=== PATIENT | female | born 1935 | race African-American/Black ===

== ENCOUNTER → 2019-05-14 | Outpatient (CLI) | payer OTHER ==
[~2019-05-14] VITALS: Ht 162.6 cm; Wt 68.9 kg
[~2019-05-14] MED LIST: ADVAIR HFA115 MCG/21 INH; ANTIVERT25 MG PO; ASPIR 8181 M1 PO; ASPIR 8181 MG PO; CENTRUM SILVER1 EAC4 PO; CIPRO500 MG PO; COZAAR 50 MG TA50 M2 PO; FISH OIL 1,001000 M2 PO; FLAGYL500 MG PO; GLIPIZIDE 10 MG10 MG PO; HYDROCHLOROTH12.5 M1 PO; LIDODERM 5%1 PATC1 TOP; METFORMIN HCL500 MG PO; MOBIC7.5 MG PO; MOVANTIK25 MG PO; MYRBETRIQ25 MG PO; NEURONTIN 300300 M1 PO; NITROGLYCERIN0.4 MG SL; NORTRIPTYLINE H10 M1 PO; NORVASC5 MG PO; OMEPRAZOLE 20 M20 M1 PO; OXYCODONE HCL20 M1 PO; OXYCONTIN20 M1 PO; PRESERVISION T1 EACH PO; PRILOSEC 20 MG20 MG PO; TENORMIN50 MG PO; TOVIAZ4 M1 PO; TRIPLE FLEX CA1 EACH PO; TROSPIUM CHLORI20 MG PO; TYLENOL325 M1 PO; VITAMIN D1000 UNIT PO; VITAMINC500 PO; VYTORIN 10-201 EACH PO; WAL-DRYL25 M1 PO
--- NOTE | ~2019-05-14 | HPC ---
[facility] [place] [address] PAIN MANAGEMENT CONSULTATION Name: GLADYS BRONSON Room #: REG [facility]..#: [id number] Admission: 05/14/19 Attend Phys: Kenney Delarosa MD Discharge: Date of : 37 Report #: [id number] THIS REPORT FOR: //name// CC: Bran Delarosa DATE OF SERVICE: 05/14/2019 CHIEF COMPLAINT: Low back pain with radiation down the back of her legs and numbness in her calves. The patient is a pleasant 84-year-old, here today with her daughter. She has longstanding back pain that has been fairly severe since 2016. Her pain is described as constant and aching and she scores it as a 10/10, worse with standing and weightbearing, improved by lying down and sitting. Pain drawing shows pain across the low back, but she did not complete it. She also reported pain into her legs, posterior thigh and calf. I have very little in the way of history or past medical records. She saw Dr. Gurwinder Altamirano on 02/13/2019. He referred her to our clinic for assessment. He raised the question of whether or not she was a candidate for a neurostimulator. MEDICATIONS: Losartan, glipizide, omeprazole, amlodipine, Vytorin, gabapentin 100 mg 2 tablets daily or 300 mg b.i.d., I am uncertain by her history. Baby aspirin, atorvastatin, fish oil, Tylenol 2 tablets t.i.d. ALLERGIES: PENICILLIN AND ASPIRIN. PAST MEDICAL HISTORY: As noted from her report and Dr. Altamirano's record, positive for type 2 diabetes, hypertension, gastroesophageal reflux disease, hyperlipidemia, and there is mention of this CVA, no residual. SOCIAL HISTORY: She is able to live independently, but is limited. She reports every day tobacco use for decades. She denies use of alcohol. She has trouble with all of her daily weightbearing activities. REVIEW OF SYSTEMS: Decreased appetite and fatigue and weakness, hearing loss, loss of appetite, frequent urination and nocturia including incontinence and dribbling. Memory loss is noted on the form by her daughter with a ?. FAMILY HISTORY: No family history documented. PHYSICAL EXAMINATION: [facility] [address] [place] [address] PAIN MANAGEMENT CONSULTATION Name: GLADYS BRONSON Room #: REG [facility] Sugar.#: [id number] Admission: 05/14/19 Attend Phys: Kenney Delarosa MD Discharge: Date of : 37 Report #: [id number] GENERAL: She is pleasant, hard of hearing. VITAL SIGNS: Blood pressure 121/57, heart rate 60, respirations 20, O2 sat 100, 5 feet, 4 inches, 152 pounds, BMI 26.1. HEENT: Reveals some arcus senilis. Pupils are equal, reactive to light. EOMs intact. Mucous membranes moist. NECK: Supple. CHEST: Clear, without any audible wheezing, inspiratory or expiratory. CARDIAC: Rhythm was regular. I did not hear a murmur. ABDOMEN: Soft. MUSCULOSKELETAL: She moves independently from sitting to standing position with some effort. She walks with a cane. She complains of pain as she stands and as she walks. Pain is in her back, hips and radiating down both legs. Examination of the spine reveals tenderness across the lumbosacral segment. There is pain in the paravertebral muscles as well. There is no pain in the thoracic region. She has no tenderness over the sacroiliac joints. In the seated position, straight leg raising is negative for radicular symptoms. Sensation is diminished slightly. Deep tendon reflexes are 1+ at the knees and absent at the ankles. There is no significant focal weakness. DIAGNOSTIC DATA: MRI scan report reviewed. The scan shows that there are multilevel degenerative changes consistent with age. Findings are most pronounced at L4-L5 and are consistent with spinal stenosis 5-6 mm in the AP diameter. There is bilateral foraminal stenosis as well, more prominent on the right. While this is the worst level, there are degenerative changes also noted at L3-L4 of similar degree without the anterolisthesis and there is also narrowing at L5-S1. I do not have the films to review. There is significant ligamentous hypertrophy reported and bulging annulus. 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 RECOMMENDATIONS: She was sent to us to discuss neurostimulator and we did that. I discussed multiple steps required until someone has a successful stimulator implant. This includes initial preauthorization, a visit to a clinical psychologist. A trial is performed with leads placed and carried on for 1 week. If the trial is deemed successful, the leads are removed and after a period of 4 weeks to prevent the risk of infection, a neurostimulator implant would take place. The surgical procedure has some risks including infection, movement of the leads and failure to provide similar relief to the trial. Multiple visits may be required with the stimulator representatives to explore programming. At the end of the process, success in my opinion is substantial and meaningful pain relief without using multiple other modalities and the duration of the response should be long. I shared with the patient and her daughter that we see many spinal cord stimulator failures coming to our practice from elsewhere and that it is not successful across the board. The patient's selection is important. [facility] [address] [address] PAIN MANAGEMENT CONSULTATION Name: GLADYS BRONSON Room #: REG [facility]se Collins#: [id number] Admission: 05/14/19 Attend Phys: Kenney Delarosa MD Discharge: Date of : 37 Report #: [id number] Another option would be an intermittent epidural steroid injection using low dose triamcinolone because of her diabetes. This can be performed in 5-10 minutes and we have success rate of roughly 50% with epidural for patients with neurogenic claudication. Success, as I describe it is meaningful improvement for a period of 3-6 months and the epidural can be repeated if there is a spot identified that provides good relief. Many patients are satisfied with this simpler approach. Her medication was reviewed on the prescription drug monitoring program information. It appears that since 03/08/2019, she has had prescriptions for 330 oxycodone tablets; 240 of these were 20 mg and 90 of them were 10 mg. It is curious because she tells us that she has not taken oxycodone since February. Neither her daughter nor the patient could help us identify the location of these medications, although they may be in pills in her apartment. Her daughter was asked to look for them and have them disposed. With the opioid crisis, this is many milligrams of oxycodone, high dose that can be adulterated. We want to make sure that they are kept off the street. I have requested an epidural steroid injection at L4-L5 and we will bring her back for the procedure. I do not intend to prescribe medications for her. By: [id number] Kenney Delarosa MD /nt
[2019-05-14 10:21] VITALS: BP 121/57
--- NOTE | 2019-05-14 10:53 | NUR ---
Pain Clinic Assessment: 1. History of Osteoarthritis: "ALL OVER" History of Rheumatoid Arthritis: DENIES 2. Height: 5 ft. 4 in. 162.6 cm. Weight: 152.0 lb. oz. 68.947 kg. Patient's BMI: 26.1 3. Vital Signs: BP: 121/57 Pulse: 60 Resp: 20 Temp: 02 Sat: 100 ECG Mon: 4. Pain Intensity: 10 5. Fall Risk: Dizziness: Y Needs help standing or walking: Y Fallen in the last 3 months: N Fall risk comments: 6. Patient on Blood Thinner: None 7. History of Hypertension: Y 8. Opioid Therapy greater than 6 weeks: N Opiate Contract Signed: 9. Risk Assessment Tool Provided: 10. Functional Assessment Tool: 11. Recreational Drug Use: Never Drug Type: Tobacco Use: Current Every Day Smoker Tobacco Type: Cigarettes Amount or Packs/day: 1 How Many Years: 50 Alcohol Use: No Frequency: Quant:
== END ==
LOC: PAIN 03-26 06:54
DX: M43.16 Spondylolisthesis, lumbar region (principal); M48.062 Spinal stenosis, lumbar region with neurogenic claudication; Z79.899 Other long term (current) drug therapy; Z88.8 Allergy status to other drugs, medicaments and biological substances

== ENCOUNTER → 2019-05-21 | Outpatient (CLI) | payer OTHER ==
[~2019-05-21] VITALS: Ht 162.6 cm; Wt 68.9 kg
--- NOTE | ~2019-05-21 | HPC ---
[facility] [address] [place] [address] PAIN MANAGEMENT CONSULTATION Name: GLADYS BRONSON Room #: REG Jesse Wooten.#: [id number] Admission: 05/21/19 Attend Phys: Kenney Delarosa MD Discharge: Date of : 37 Report #: [id number] THIS REPORT FOR: cc: Marco A Mcguire MD, Keninde A. MD Morgan, Richard L. MD ~ THIS REPORT FOR: //name// CC: Bran Delarosa DATE OF SERVICE: 05/21/2019 Followup visit for neurogenic claudication secondary to spinal stenosis. The patient was seen in consultation 1 week ago and we received preauthorization to go forward with a lumbar epidural injection today. Potential benefits and risks were reviewed once again with her. She is anxious to proceed to obtain some relief. After informed consent, she was taken to fluoroscopic suite for treatment. PROCEDURE: Lumbar epidural steroid injection L3-L4 under fluoroscopic guidance. She was taken to fluoroscopic suite, placed prone, skin prepped with ChloraPrep. Skin anesthetized over the L3-L4 interspace. A 20-gauge Tuohy epidural needle was advanced in the epidural space with loss of resistance technique. There was no blood or CSF aspirated. A 1 mL of Omnipaque injected to demonstrate an excellent epidurogram, was followed by 3 mL of 0.5% lidocaine mixed with 80 mg of triamcinolone. She tolerated the procedure well and was observed for 45 minutes and discharged. Follow up as needed. By: [id number] Kenney Delarosa MD /nt
[2019-05-21 15:00] VITALS: BP 125/71
--- NOTE | 2019-05-21 15:19 | NUR ---
Pain Clinic Assessment: 1. History of Osteoarthritis: "ALL OVER" History of Rheumatoid Arthritis: DENIES 2. Height: 5 ft. 4 in. 162.6 cm. Weight: 152.0 lb. oz. 68.947 kg. Patient's BMI: 26.1 3. Vital Signs: BP: 125/71 Pulse: 73 Resp: 14 Temp: 02 Sat: 95 ECG Mon: 4. Pain Intensity: 10 5. Fall Risk: Dizziness: N Needs help standing or walking: Y Fallen in the last 3 months: N Fall risk comments: 6. Patient on Blood Thinner: None 7. History of Hypertension: Y 8. Opioid Therapy greater than 6 weeks: N Opiate Contract Signed: 9. Risk Assessment Tool Provided: 0- LOW 10. Functional Assessment Tool: 57/ 11. Recreational Drug Use: Never Drug Type: Tobacco Use: Current Every Day Smoker Tobacco Type: Cigarettes Amount or Packs/day: 1 How Many Years: 50 Alcohol Use: No Frequency: Quant:
== END | disposition home or self-care (01) ==
LOC: PAIN 07:01
DX: M48.062 Spinal stenosis, lumbar region with neurogenic claudication (principal); M54.5 Low back pain; F17.210 Nicotine dependence, cigarettes, uncomplicated; Z98.890 Other specified postprocedural states; Z79.899 Other long term (current) drug therapy; Z88.0 Allergy status to penicillin; Z87.19 Personal history of other diseases of the digestive system

== ENCOUNTER → 2019-06-11 | Outpatient (CLI) | payer OTHER ==
[~2019-06-11] VITALS: Ht 162.6 cm; Wt 67.2 kg
[~2019-06-11] MED LIST changes: +FISH OIL 1,0001 EAC9 PO; +GABAPENTIN 100100 MG PO; +IRON325 PO; +LIPITOR10 MG PO; -NEURONTIN 300300 M1 PO; +ONE-DAILY MULT1 EACH PO; +OXYCODONE HCL 55 MG PO; +TOLTERODINE TART4 MG PO; +TYLENOL325 MG PO; +VYTORIN 10-101 EACH PO; +WAL-DRAM 225 MG PO
[2019-06-11 14:51] VITALS: BP 132/71
--- NOTE | 2019-06-11 15:17 | NUR ---
Pain Clinic Assessment: 1. History of Osteoarthritis: "ALL OVER" History of Rheumatoid Arthritis: DENIES 2. Height: 5 ft. 4 in. 162.6 cm. Weight: 148.2 lb. oz. 67.223 kg. Patient's BMI: 25.4 3. Vital Signs: BP: 132/71 Pulse: 72 Resp: 20 Temp: 02 Sat: 99 ECG Mon: 4. Pain Intensity: 10 5. Fall Risk: Dizziness: N Needs help standing or walking: Y Fallen in the last 3 months: N Fall risk comments: 6. Patient on Blood Thinner: None 7. History of Hypertension: Y 8. Opioid Therapy greater than 6 weeks: N Opiate Contract Signed: 9. Risk Assessment Tool Provided: 0- LOW 10. Functional Assessment Tool: 57/ 11. Recreational Drug Use: Never Drug Type: Tobacco Use: Current Every Day Smoker Tobacco Type: Cigarettes Amount or Packs/day: How Many Years: Alcohol Use: No Frequency: Quant:
--- NOTE | 2019-06-14 14:31 | HPC ---
[facility] [address] [place] [address] PAIN MANAGEMENT CONSULTATION Name: GLADYS BRONSON Room #: REG [facility] Sugar.#: [id number] Admission: 06/11/19 Attend Phys: Kenney Delarosa MD Discharge: Date of : 37 Report #: [id number] THIS REPORT FOR: cc: Marco A Mcguire MD, Keninde A. MD Morgan, Richard L. MD ~ THIS REPORT FOR: //name// CC: Marco A Delarosa DATE OF SERVICE: 06/11/2019 Followup visit for severe spinal stenosis. The patient had an epidural injection with limited improvement. I sought preauthorization today to try transforaminal injection. I would like to see if that provides additional relief for her. It can be repeated if she has more sustained improvement from these injections. PQRS: Positive for spondylosis and she says she has arthritis in all of her joints. Her BMI is 25.4, blood pressure 132/71, heart rate 72, respirations 20, pain intensity 10/10. She needs help standing or walking. She has not fallen in the last 3 months. No blood thinners. She is treated for hypertension by her primary care physician. All of her medications were reviewed and reconciled including her opioids, which she provides for her. She has completed an opioid risk tool and scored 0. Low risk for addiction. At her age with limited options for treatment, I would favor using it if it provides her with some relief as long as she does not have significant cognitive side effects. She has been managing constipation effectively. Her functional assessment score is poor. She is 57/70 suggesting impact of almost all of her daily activities and interactions due to her pain. She denies tobacco and alcohol. IMPRESSION: Severe spinal stenosis L3-L4 with radiculopathy. Bilateral neuroforaminal stenosis, worse on the left. PROCEDURE: Bilateral transforaminal epidural injections. After informed consent, she was taken to fluoroscopic suite, placed prone, skin prepped with ChloraPrep first on the left. A 22-gauge needle was advanced into the neural foramen using triplanar fluoroscopic views. There was no blood or CSF aspirated. Then I injected 0.25 mL of Omnipaque followed by 2 mL of 0.5% lidocaine mixed with 40 mg of triamcinolone. Needle was removed. I then repeated the injection on the right. She tolerated the procedure well and pain [address] [address] PAIN MANAGEMENT CONSULTATION Name: GLADYS BRONSON Room #: REG ABD[facility]ZIZ Dennis#: [id number] Admission: 06/11/19 Attend Phys: Kenney Delarosa MD Discharge: Date of : 37 Report #: [id number] score was possibly reduced to 0 at discharge. She ambulated out independently. Followup visit planned in 1-2 months, may consider repeat injection. <ELECTRONICALLY SIGNED> By: Kenney Delarosa MD 06/14/19 [id number] Kenney Delarosa MD /kathryn
== END | disposition home or self-care (01) ==
LOC: PAIN 06:46
DX: M54.16 Radiculopathy, lumbar region (principal); M48.061 Spinal stenosis, lumbar region without neurogenic claudication; I10 Essential (primary) hypertension; F17.210 Nicotine dependence, cigarettes, uncomplicated; Z79.891 Long term (current) use of opiate analgesic; Z98.890 Other specified postprocedural states; Z88.0 Allergy status to penicillin; Z79.899 Other long term (current) drug therapy